=== PATIENT | male | born 1990 | race Caucasian/White ===

== ENCOUNTER 2022-06-24 18:13 | Emergency (ER) | payer BC, OTHER ==
[~2022-06-24] VITALS: Ht 177.8 cm; Wt 88.5 kg
--- NOTE | 2022-06-24 19:53 | NUR ---
Dr. Brandt in room examining patient. MSE in progress.
--- NOTE | 2022-06-24 21:18 | NUR ---
Patient discharged to home in stable condition. Written and verbal after care instructions given. Patient verbalizes understanding of instructions. Stressed follow up or return to ER for worsening s/s. Patient walked out with steady gait.
[2022-06-24 21:25] VITALS: BP 145/85
== END 2022-06-24 21:27 | disposition home or self-care (01) ==
LOC: ER 18:18
DX: S39.012A Strain of muscle, fascia and tendon of lower back, initial encounter (principal); F17.210 Nicotine dependence, cigarettes, uncomplicated; X58.XXXA Exposure to other specified factors, initial encounter; Y93.89 Activity, other specified; Y92.89 Other specified places as the place of occurrence of the external cause; Y99.8 Other external cause status
CPT/HCPCS: 72100; A4663